=== PATIENT | female | born 1995 | race African-American/Black ===

== ENCOUNTER 2021-11-21 20:20 | Day surgery (SDC) | payer OTHER, BC ==
[2021-11-21 21:09] VITALS: BMI 42.3
[2021-11-21] MEDS ORDERED: hydrALAZINE 20 MG/ML VIAL SLOW IVP PRN (21:26)
[2021-11-21] MEDS ORDERED: Acetaminophen 500 MG TAB PO PRN (21:49)
[2021-11-21 22:29] LABS: Fetal Membranes Rupture No Membranes Rupture (No Rupture)
[2021-11-21 23:37] LABS: Bilirubin Neg (Negative); Blood, Urine 10 (Negative); Clarity Clear (Clear); Glucose, Urine (Dipstick) Normal (Negative); Ketone, Urine 5 mg/dL (Negative); Leukocyte Negative (Negative); Nitrite Negative (Negative); Protein, Urine (Dipstick) 15 mg/dl (Neg-Trace); Specific Gravity, Urine 1.015 (1.002-1.036); Urobilinogen Normal mg/dL (Less than 2); pH, Urine 6.5 (5.0-9.0)
[2021-11-21 23:46] LABS: Bacteria/HPF 3+ HPF (None Seen); Mucous/LPF None Seen LPF (<2+); RBC/HPF 0-3 HPF (0-3); WBC/HPF 0-3 HPF (0-3)
== END 2021-11-22 01:30 | disposition home or self-care (01) ==
LOC: CSHLD/OP 20:20
PROVIDERS: ATTEND Family Medicine
DX: O47.03 False labor before 37 completed weeks of gestation, third trimester (principal); O99.891 Other specified diseases and conditions complicating pregnancy; R10.2 Pelvic and perineal pain; O23.593 Infection of other part of genital tract in pregnancy, third trimester; B96.89 Other specified bacterial agents as the cause of diseases classified elsewhere; Z3A.32 32 weeks gestation of pregnancy
CPT/HCPCS: 81001; 84112; 87480; 87510; 87660; 99285

== ENCOUNTER 2021-12-21 20:05 | Day surgery (SDC) | payer OTHER ==
[2021-12-21 20:25] VITALS: BMI 43.8
[2021-12-21] MEDS ORDERED: hydrALAZINE 20 MG/ML VIAL SLOW IVP PRN (20:40)
== END 2021-12-21 21:28 | disposition home health service (06) ==
LOC: CSHLD/OP 20:05
PROVIDERS: ATTEND Family Medicine
DX: O47.1 False labor at or after 37 completed weeks of gestation (principal); Z3A.37 37 weeks gestation of pregnancy
CPT/HCPCS: 99282

== ENCOUNTER 2021-12-25 20:20 | Day surgery (SDC) | payer OTHER ==
[2021-12-25 20:56] VITALS: BMI 43.8
[2021-12-25] MEDS ORDERED: hydrALAZINE 20 MG/ML VIAL SLOW IVP PRN (21:30)
[2021-12-25] MEDS ORDERED: Ondansetron PF 4 MG/2 ML Vial IVP SCH (21:45)
[2021-12-25 21:54] LABS: Anion Gap 13 mmol/L (10-20); BUN (Urea Nitrogen) 6 mg/dL (7.0-18.7); Calc. Creatinine Clearance 214 mL/min (70-130); Carbon Dioxide 21 mmol/L (22-29); Chloride 104 mmol/L (98-107); Glucose 83 mg/dL (70-105); Magnesium 1.9 mg/dL (1.6-2.6); Potassium 4.2 mmol/L (3.5-5.1); Sodium 134 mmol/L (136-145)
== END 2021-12-25 23:25 | disposition home or self-care (01) ==
LOC: CSHLD/OP 20:20
PROVIDERS: ATTEND Family Medicine
DX: O99.891 Other specified diseases and conditions complicating pregnancy (principal); R19.7 Diarrhea, unspecified; R10.2 Pelvic and perineal pain; O99.283 Endocrine, nutritional and metabolic diseases complicating pregnancy, third trimester; E86.0 Dehydration; O21.2 Late vomiting of pregnancy; O47.1 False labor at or after 37 completed weeks of gestation; Z3A.37 37 weeks gestation of pregnancy
CPT/HCPCS: 80048; 83735; 96360; 96361; 96375; 99283; J2405

== ENCOUNTER 2021-12-30 11:50 | Outpatient (CLI) | payer OTHER, BC ==
[2021-12-31 00:02] LABS: SARS-CoV-2 PCR by NAA Not Detected (NotDetected)
== END 2021-12-30 11:51 | disposition home or self-care (01) ==
LOC: CSHLAB 11:50
PROVIDERS: ATTEND Family Medicine
DX: Z20.822 Contact with and (suspected) exposure to COVID-19 (principal)
CPT/HCPCS: U0003; U0005

== ENCOUNTER 2022-01-04 20:22 | Inpatient (IN) | payer OTHER ==
[2022-01-04 20:39] VITALS: BMI 43.8
[2022-01-04] MEDS: Lactated Ringer's 1,000 ML IV SCH (21:00)
[2022-01-04] MEDS ORDERED: Ondansetron PF 4 MG/2 ML Vial IVP PRN (21:45)
[2022-01-04] MEDS ORDERED: Penicillin G Potassium 5 MILL.UNITS in Sodium Chloride 0.9% 100 ML IVPB SCH (21:45)
[2022-01-04] MEDS ORDERED: Butorphanol Tartrate 1 MG/ML VIAL SLOW IVP PRN (21:45)
[2022-01-04] MEDS ORDERED: Promethazine HCl 25 MG/ML VIAL IM PRN (21:45)
[2022-01-04] MEDS ORDERED: hydrALAZINE 20 MG/ML VIAL SLOW IVP PRN (21:45)
[2022-01-04] MEDS ORDERED: Lidocaine 1% (PF) 30 ML VIAL SC PRN (21:45)
[2022-01-04] MEDS ORDERED: Carboprost 250 MCG/ML AMP IM PRN (21:45)
[2022-01-04] MEDS ORDERED: Acetaminophen 500 MG TAB PO PRN (21:45)
[2022-01-04] MEDS ORDERED: Ibuprofen 800 MG TAB PO PRN (21:45)
[2022-01-04] MEDS ORDERED: Misoprostol 200 MCG TAB RC PRN (21:45)
[2022-01-04] MEDS ORDERED: Diphenoxylate HCl/Atropine Tablet PO PRN (21:45)
[2022-01-04] MEDS ORDERED: Methylergonovine 0.2 MG/ML VIAL IM PRN (21:45)
[2022-01-04] MEDS ORDERED: NS w/ Oxytocin 30 units 500 ML IV SCH (21:45)
[2022-01-04] MEDS ORDERED: NS w/ Oxytocin 30 units 500 ML IVPB SCH (21:45)
[2022-01-04] MEDS ORDERED: HYDROcodone/Acetaminophen 5/325 mg Tablet PO PRN (21:45)
[2022-01-04 21:54] LABS: Mean Corpuscular HGB CONC 32.9 g/dL (32.0-36.0); Mean Corpuscular Hemoglobin 27.7 pg (27.0-33.0); Mean Corpuscular Volume 84.1 fl (81.6-98.3); Mean Platelet Volume 9.9 fl (7.4-10.4); Platelet Count 286 10x3/uL (150-450); RBC Distribution Width 14.3 % (11.5-14.5); Red Blood Cell (RBC) Count 3.97 10x6/uL (3.90-5.03)
[2022-01-04 22:16] LABS: Hep B Surf Ag Non-Reactive S/CO (NonReactive)
[2022-01-04 22:17] LABS: Syphilis Antibody Nonreactive (Nonreactive); Syphilis Antibody Index 0.05 S/CO (<1.00 Non-Reactive)
[2022-01-04 22:35] LABS: HBSAg Index 0.16 S/CO (0-0.99)
[2022-01-05] MEDS ORDERED: Misoprostol 100 MCG TAB PO SCH (01:00)
[2022-01-05] MEDS: Penicillin G 2.5 MILL.units 2.5 MILL.UNITS in Premix Bag 1 BAG IVPB SCH ×4 (01:15→16:41)
[2022-01-05] MEDS ORDERED: Fentanyl 2 mcg/Bup 0.1% Cadd 100 ML ONE (05:22)
[2022-01-05] MEDS: Lactated Ringer's 1,000 ML IV SCH ×3 (05:34→09:57)
[2022-01-05] MEDS ORDERED: diphenhydrAMINE 50 MG/ML VIAL IVP PRN ×2 (06:03→12:41)
[2022-01-05] MEDS ORDERED: Promethazine HCl 25 MG/ML VIAL IM PRN ×2 (06:03→12:41)
[2022-01-05] MEDS ORDERED: Ondansetron PF 4 MG/2 ML Vial IVP PRN ×3 (06:03→15:38)
[2022-01-05] MEDS ORDERED: Acetaminophen 325 MG TAB PO PRN (06:03)
[2022-01-05] MEDS ORDERED: Lactated Ringer's 500 ML IV PRN (06:03)
[2022-01-05] MEDS ORDERED: Naloxone HCl 0.4 mg/ml Vial IVP PRN ×4 (06:03→12:41)
[2022-01-05] MEDS ORDERED: Hydrocerin (Eucerin) Cream 120 gm Jar TOP PRN ×2 (06:03→12:41)
[2022-01-05] MEDS ORDERED: ePHEDrine Sulfate 50 MG/10 ML VIAL SLOW IVP PRN (06:03)
[2022-01-05] MEDS ORDERED: Fentanyl 2 mcg/Bupivacaine 0.1% Cassette 100 ML EPIDURAL SCH (06:15)
[2022-01-05] MEDS ORDERED: Communication Order-Pharmacy FS SCH ×2 (06:15→12:45)
[2022-01-05] MEDS ORDERED: ceFAZolin 2 GM/Dextrose 50 ML IVPB ONE (11:14)
[2022-01-05] MEDS ORDERED: Azithromycin 500 MG VIAL ONE (11:14)
[2022-01-05] MEDS ORDERED: Ondansetron HCl/PF 4 MG/2 ML Vial IVP PRN (12:41)
[2022-01-05] MEDS ORDERED: Promethazine HCl 25 MG SUPP PR PRN (12:41)
[2022-01-05] MEDS ORDERED: Ketorolac Tromethamine 30 MG/ML VIAL IVP PRN (12:41)
[2022-01-05] MEDS ORDERED: Meperidine HCl/PF 25 MG/ML VIAL SLOW IVP PRN (12:41)
[2022-01-05] MEDS ORDERED: Naloxone HCl 0.4 mg/ml Vial IV PRN (12:41)
[2022-01-05] MEDS ORDERED: Fentanyl 100 MCG/2 ML VIAL SLOW IVP PRN (12:41)
[2022-01-05] MEDS ORDERED: Ketorolac Tromethamine 30 MG/ML VIAL IVP SCH (12:45)
[2022-01-05] MEDS ORDERED: Fentanyl 100 MCG/2 ML VIAL ONE (14:26)
[2022-01-05] MEDS ORDERED: diphenhydrAMINE 25 MG CAP PO PRN (15:38)
[2022-01-05] MEDS ORDERED: hydrALAZINE 20 MG/ML VIAL SLOW IVP PRN (15:38)
[2022-01-05] MEDS ORDERED: NS w/ Oxytocin 30 units 500 ML IV SCH (15:38)
[2022-01-05] MEDS ORDERED: Lanolin Ointment 7 GM TUBE TOP PRN (15:38)
[2022-01-05] MEDS ORDERED: Boostrix 0.5 ML (Tdap) VIAL IM ONE (15:38)
[2022-01-05] MEDS ORDERED: Bisacodyl 10 MG SUPP PR PRN (15:38)
[2022-01-05] MEDS: Ketorolac Tromethamine 30 MG/ML VIAL IVP SCH ×2 (17:32→23:57)
[2022-01-05] MEDS: Ferrous Sulfate 325 MG TAB PO SCH (21:11)
[2022-01-05] MEDS: Docusate 100 MG CAP PO SCH (21:11)
[2022-01-06] MEDS ORDERED: HYDROcodone/Acetaminophen 5/325 mg Tablet PO PRN (02:00)
[2022-01-06 04:45] LABS: Hemoglobin 9.3 g/dL (12.0-15.5); Mean Corpuscular HGB CONC 33.6 g/dL (32.0-36.0); Mean Corpuscular Hemoglobin 28.5 pg (27.0-33.0); Mean Platelet Volume 9.7 fl (7.4-10.4); Platelet Count 234 10x3/uL (150-450); RBC Distribution Width 14.5 % (11.5-14.5); Red Blood Cell (RBC) Count 3.26 10x6/uL (3.90-5.03); White Blood Cell (WBC) Count 14.7 10x3/uL (3.5-10.5)
[2022-01-06] MEDS: Ketorolac Tromethamine 30 MG/ML VIAL IVP SCH (05:33)
[2022-01-06] MEDS: HYDROcodone/Acetaminophen 5/325 mg Tablet PO PRN ×4 (06:49→22:37)
[2022-01-06] MEDS: Docusate 100 MG CAP PO SCH ×2 (09:04→22:35)
[2022-01-06] MEDS: Ferrous Sulfate 325 MG TAB PO SCH ×2 (09:04→22:35)
[2022-01-06] MEDS: Prenatal Vitamin 1 TAB PO SCH (09:04)
[2022-01-06] MEDS ORDERED: Ibuprofen 800 MG TAB PO PRN (13:00)
[2022-01-06] MEDS: Ibuprofen 800 MG TAB PO SCH (22:35)
[2022-01-06] MEDS: Simethicone Chewable 80 MG TAB PO PRN (22:43)
[2022-01-07] MEDS: HYDROcodone/Acetaminophen 5/325 mg Tablet PO PRN ×3 (02:13→10:32)
[2022-01-07] MEDS: Ibuprofen 800 MG TAB PO SCH (06:37)
[2022-01-07 08:20] VITALS: BP 127/71; TEMP 97.9
[2022-01-07] MEDS: Simethicone Chewable 80 MG TAB PO PRN (08:21)
[2022-01-07] MEDS: Ferrous Sulfate 325 MG TAB PO SCH (08:21)
[2022-01-07] MEDS: Prenatal Vitamin 1 TAB PO SCH (08:21)
[2022-01-07] MEDS: Docusate 100 MG CAP PO SCH (08:21)
[2022-01-07] MEDS ORDERED: Ibuprofen 800 MG TAB PO SCH (14:00)
== END 2022-01-07 13:30 | disposition home or self-care (01) | DRG 788 ==
LOC: CSHLD 20:22 → CSHPP 01-05 14:50
PROVIDERS: ADMIT Family Medicine; ATTEND Family Medicine
PROC: 10907ZC Drainage of Amniotic Fluid, Therapeutic from Products of Conception, Via Natural or Artificial Opening (ICD-10-PCS; 2022-01-04)
PROC: 10H07YZ Insertion of Other Device into Products of Conception, Via Natural or Artificial Opening (ICD-10-PCS; 2022-01-04)
PROC: 3E0P7VZ Introduction of Hormone into Female Reproductive, Via Natural or Artificial Opening (ICD-10-PCS; 2022-01-04)
PROC: 10D00Z1 Extraction of Products of Conception, Low, Open Approach (ICD-10-PCS; principal; 2022-01-05)
DX: O99.824 Streptococcus B carrier state complicating childbirth (principal); Z20.822 Contact with and (suspected) exposure to COVID-19; Z37.0 Single live birth; Z3A.39 39 weeks gestation of pregnancy; O76 Abnormality in fetal heart rate and rhythm complicating labor and delivery; O69.82X0 Labor and delivery complicated by other cord entanglement, without compression, not applicable or unspecified
CPT/HCPCS: 36415; 51702; 85027; 86780; 86850; 86900; 86901; 87340; J1200; J1885; J2405; J2540; J2590; J3010; J3490; J7120

== ENCOUNTER 2022-11-27 09:30 | Outpatient (CLI) | payer OTHER | END 2022-11-27 09:31 | disposition home or self-care (01) | LOC: CSHULT 09:30 | PROVIDERS: ATTEND Family Medicine | DX: O09.892 Supervision of other high risk pregnancies, second trimester (principal); Z3A.21 21 weeks gestation of pregnancy | CPT/HCPCS: 76805 ==

== ENCOUNTER 2023-03-12 10:26 | Inpatient (IN) | payer OTHER ==
[2023-03-12] MEDS ORDERED: hydrALAZINE 20 MG/ML VIAL SLOW IVP PRN ×2 (10:43→16:48)
[2023-03-12] MEDS ORDERED: Misoprostol 200 MCG TAB PR PRN (10:43)
[2023-03-12] MEDS ORDERED: Bicitra 30 ML UDCUP PO PRN (10:43)
[2023-03-12] MEDS ORDERED: Tranexamic Acid 1,000 MG/10 ML VIAL IVP PRN (10:43)
[2023-03-12] MEDS ORDERED: Carboprost 250 MCG/ML AMP IM PRN (10:43)
[2023-03-12] MEDS ORDERED: Lactated Ringer's 1,000 ML IV SCH (10:43)
[2023-03-12] MEDS ORDERED: NS w/ Oxytocin 30 units 500 ML IV SCH (10:43)
[2023-03-12] MEDS ORDERED: Diphenoxylate HCl/Atropine Tablet PO PRN (10:43)
[2023-03-12] MEDS ORDERED: Methylergonovine 0.2 MG/ML VIAL IM PRN (10:43)
[2023-03-12] MEDS ORDERED: Promethazine HCl 25 MG/ML VIAL IM PRN ×3 (10:43→16:48)
[2023-03-12] MEDS ORDERED: Ondansetron PF 4 MG/2 ML Vial IVP PRN ×3 (10:43→16:48)
[2023-03-12] MEDS ORDERED: Famotidine/PF 20 mg/2ml Vial SLOW IVP PRN (10:43)
[2023-03-12] MEDS ORDERED: CEFAZOLIN 2 GM in Sodium Chloride 0.9% 100 ML IVPB SCH (10:43)
[2023-03-12 10:44] VITALS: BMI 44.8
[2023-03-12 11:07] LABS: Hemoglobin 9.7 g/dL (12.0-15.5); Mean Corpuscular HGB CONC 32.3 g/dL (32.0-36.0); Mean Corpuscular Hemoglobin 26.1 pg (27.0-33.0); Mean Corpuscular Volume 80.9 fl (81.6-98.3); Mean Platelet Volume 9.6 fl (7.4-10.4); Platelet Count 309 10x3/uL (150-450); RBC Distribution Width 14.3 % (11.5-14.5); Red Blood Cell (RBC) Count 3.71 10x6/uL (3.90-5.03); White Blood Cell (WBC) Count 8.2 10x3/uL (3.5-10.5)
[2023-03-12 11:37] LABS: HBSAg Index 0.17 S/CO (0-0.99); Hep B Surf Ag - L&D Non-Reactive S/CO (NonReactive)
[2023-03-12 11:39] LABS: Syphilis Antibody Nonreactive (Nonreactive); Syphilis Antibody Index 0.06 S/CO (<1.00 Non-Reactive)
[2023-03-12] MEDS ORDERED: Dexamethasone 4 mg/ml Vial ONE (11:57)
[2023-03-12] MEDS ORDERED: Morphine PF 10 MG/10 ML VIAL ONE (11:57)
[2023-03-12] MEDS ORDERED: Ondansetron PF 4 MG/2 ML Vial ONE (11:57)
[2023-03-12] MEDS ORDERED: PHENYLEPHRINE-NS 100 MCG/ML 10 ML SYRINGE ONE (11:57)
[2023-03-12] MEDS ORDERED: Oxytocin 10 UNITS/ML VIAL ONE (11:57)
[2023-03-12] MEDS ORDERED: Lidocaine 2% MPF 10 ML AMP (For Epidural Use) ONE (12:39)
[2023-03-12] MEDS ORDERED: Triamcinolone 40 MG/ML VIAL IM SCH (14:00)
[2023-03-12] MEDS ORDERED: Moisturizing Cream (Eucerin) 113 GM JAR TOP PRN (14:32)
[2023-03-12] MEDS ORDERED: diphenhydrAMINE 50 MG/ML VIAL IVP PRN (14:32)
[2023-03-12] MEDS ORDERED: Ketorolac Tromethamine 30 MG/ML VIAL IVP PRN (14:32)
[2023-03-12] MEDS ORDERED: Naloxone HCl 0.4 mg/ml Vial IV PRN (14:32)
[2023-03-12] MEDS ORDERED: Promethazine HCl 25 MG SUPP PR PRN (14:32)
[2023-03-12] MEDS ORDERED: Fentanyl 100 MCG/2 ML VIAL SLOW IVP PRN (14:32)
[2023-03-12] MEDS ORDERED: Meperidine HCl/PF 25 MG/ML VIAL SLOW IVP PRN (14:32)
[2023-03-12] MEDS ORDERED: Ondansetron HCl/PF 4 MG/2 ML Vial IVP PRN (14:32)
[2023-03-12] MEDS ORDERED: L&D-Morphine 4 MG/ML VIAL SLOW IVP PRN (14:32)
[2023-03-12] MEDS ORDERED: Naloxone HCl 0.4 mg/ml Vial IVP PRN ×2 (14:32)
[2023-03-12] MEDS ORDERED: Ketorolac Tromethamine 30 MG/ML VIAL IVP SCH (14:45)
[2023-03-12] MEDS ORDERED: Communication Order-Pharmacy FS SCH (14:45)
[2023-03-12] MEDS ORDERED: Simethicone Chewable 80 MG TAB PO PRN (16:48)
[2023-03-12] MEDS ORDERED: diphenhydrAMINE 25 MG CAP PO PRN (16:48)
[2023-03-12] MEDS ORDERED: Lanolin Ointment 7 GM TUBE TOP PRN (16:48)
[2023-03-12] MEDS ORDERED: Boostrix 0.5 ML (Tdap) VIAL (>/=7 yrs of age) IM ONE (16:48)
[2023-03-12] MEDS ORDERED: Bisacodyl 10 MG SUPP PR PRN (16:48)
[2023-03-12] MEDS: Ketorolac Tromethamine 30 MG/ML VIAL IVP SCH (21:00)
[2023-03-12] MEDS: Docusate 100 MG CAP PO SCH (23:34)
[2023-03-12] MEDS: Ferrous Sulfate 325 MG TAB PO SCH (23:34)
[2023-03-13] MEDS: Ketorolac Tromethamine 30 MG/ML VIAL IVP SCH ×2 (02:42→08:02)
[2023-03-13] MEDS ORDERED: Meperidine HCl/PF 25 MG/ML VIAL IM PRN (02:45)
[2023-03-13 03:52] LABS: Hemoglobin 9.1 g/dL (12.0-15.5); Mean Corpuscular HGB CONC 31.6 g/dL (32.0-36.0); Mean Corpuscular Hemoglobin 25.7 pg (27.0-33.0); Mean Corpuscular Volume 81.4 fl (81.6-98.3); Mean Platelet Volume 9.6 fl (7.4-10.4); Platelet Count 290 10x3/uL (150-450); Red Blood Cell (RBC) Count 3.54 10x6/uL (3.90-5.03); White Blood Cell (WBC) Count 12.2 10x3/uL (3.5-10.5)
[2023-03-13] MEDS: HYDROcodone/Acetaminophen 5/325 mg Tablet PO PRN ×2 (05:01→21:55)
[2023-03-13] MEDS: Ferrous Sulfate 325 MG TAB PO SCH ×2 (08:03→21:54)
[2023-03-13] MEDS: Prenatal Vitamin 1 TAB PO SCH (08:03)
[2023-03-13] MEDS: Docusate 100 MG CAP PO SCH ×2 (08:03→21:54)
[2023-03-13] MEDS: Ibuprofen 800 MG TAB PO SCH ×2 (13:46→21:54)
[2023-03-14] MEDS: HYDROcodone/Acetaminophen 5/325 mg Tablet PO PRN ×5 (03:12→22:35)
[2023-03-14] MEDS: Ibuprofen 800 MG TAB PO SCH ×3 (05:25→21:26)
[2023-03-14] MEDS: Prenatal Vitamin 1 TAB PO SCH (07:20)
[2023-03-14] MEDS: Ferrous Sulfate 325 MG TAB PO SCH ×2 (07:20→21:25)
[2023-03-14] MEDS: Docusate 100 MG CAP PO SCH ×2 (07:20→21:26)
[2023-03-14] MEDS ORDERED: NIFEdipine XL 30 MG TAB PO SCH (18:00)
[2023-03-15] MEDS: Ibuprofen 800 MG TAB PO SCH ×2 (06:11→14:29)
[2023-03-15] MEDS: HYDROcodone/Acetaminophen 5/325 mg Tablet PO PRN ×2 (06:20→14:31)
[2023-03-15] MEDS: Ferrous Sulfate 325 MG TAB PO SCH (08:07)
[2023-03-15] MEDS: Prenatal Vitamin 1 TAB PO SCH (08:07)
[2023-03-15] MEDS: Docusate 100 MG CAP PO SCH (08:08)
[2023-03-15] MEDS ORDERED: NIFEdipine XL 30 MG TAB PO SCH (09:00)
[2023-03-15 11:22] VITALS: TEMP 98.4
[2023-03-15 12:46] VITALS: BP 140/64
== END 2023-03-15 15:00 | disposition home or self-care (01) | DRG 788 ==
LOC: CSHLD 10:26 → CSHPP 16:28
PROVIDERS: ADMIT Family Medicine; ATTEND Family Medicine
PROC: 10D00Z1 Extraction of Products of Conception, Low, Open Approach (ICD-10-PCS; principal; 2023-03-12)
DX: O34.211 Maternal care for low transverse scar from previous cesarean delivery (principal); O36.5930 Maternal care for other known or suspected poor fetal growth, third trimester, not applicable or unspecified; Z3A.38 38 weeks gestation of pregnancy; Z37.0 Single live birth; O99.824 Streptococcus B carrier state complicating childbirth; Z79.899 Other long term (current) drug therapy; L91.0 Hypertrophic scar; L90.5 Scar conditions and fibrosis of skin; O99.72 Diseases of the skin and subcutaneous tissue complicating childbirth; O99.892 Other specified diseases and conditions complicating childbirth; N73.6 Female pelvic peritoneal adhesions (postinfective)
CPT/HCPCS: 51702; 85027; 86780; 86850; 86900; 86901; 87340; J1100; J1885; J2274; J2405; J2550; J2590; J3490; S0028

== ENCOUNTER 2024-01-20 11:36 | Emergency (ER) | payer MEDICAID, OTHER ==
[2024-01-20] MEDS ORDERED: Acetaminophen 500 MG TAB ONE (12:02)
== END 2024-01-20 13:28 | disposition home or self-care (01) ==
LOC: CSHERS 11:36
DX: S53.401A Unspecified sprain of right elbow, initial encounter (principal); I10 Essential (primary) hypertension; W01.0XXA Fall on same level from slipping, tripping and stumbling without subsequent striking against object, initial encounter